=== PATIENT | female | born 1980 | race Caucasian/White ===

== ENCOUNTER 2016-11-18 09:53 | Emergency (ER) | payer OTHER ==
[~2016-11-18 09:53] MED LIST: ANCEF 1 GM/1 G/50 ML IV; COMPAZINE5 MG PO; DAKIN'S SOLUTI500 ML IR; LEVEMIR100 UNIT/1 SC; LISINOPRIL20 MG PO; MIRALAX17 GM PO; NORCO 7.5-3251 EACH PO; NOVOLOG100 UNIT/1 SC; PRAVASTATIN SOD20 MG PO; PROTONIX 40 MG40 M1 PO; TYLENOL 325MG325 MG PO
[2016-11-18 12:23] LABS: HEMOGLOBIN 14.9 gm/dl (12.3-15.3); RED BLOOD COUNT 4.89 M/UL (4.00-5.10); WHITE BLOOD COUNT 6.8 K/UL (4.5-11.0)
[2016-11-18 13:16] LABS: BUN/CREATININE RATIO 16 (0-10)
== END 2016-11-18 20:30 | disposition short-term general hospital (02) ==
LOC: ER1 09:53
PROVIDERS: Emergency Medicine
DX: S09.90XA Unspecified injury of head, initial encounter (principal); R20.2 Paresthesia of skin; R73.9 Hyperglycemia, unspecified; G40.909 Epilepsy, unspecified, not intractable, without status epilepticus; Z79.899 Other long term (current) drug therapy; W18.30XA Fall on same level, unspecified, initial encounter; Y92.009 Unspecified place in unspecified non-institutional (private) residence as the place of occurrence of the external cause
CPT/HCPCS: 36415; 70450; 71010; 72125; 80053; 82550; 82553; 83874; 84484; 85025; 96372; 99284; J1815

== ENCOUNTER 2016-11-26 18:45 | Emergency (ER) | payer OTHER ==
[2016-11-26 20:51] LABS: HEMOGLOBIN 13.9 gm/dl (12.3-15.3); RED BLOOD COUNT 4.58 M/UL (4.00-5.10); WHITE BLOOD COUNT 7.5 K/UL (4.5-11.0)
[2016-11-26 21:17] LABS: BUN/CREATININE RATIO 34 (0-10)
== END 2016-11-27 00:02 | disposition home or self-care (01) ==
LOC: ER1 18:45
PROVIDERS: Family Medicine
DX: E11.65 Type 2 diabetes mellitus with hyperglycemia (principal); I95.1 Orthostatic hypotension; R00.0 Tachycardia, unspecified; Z90.49 Acquired absence of other specified parts of digestive tract
CPT/HCPCS: 36415; 71010; 80053; 81001; 82009; 82550; 82553; 83605; 83690; 83874; 84484; 85025; 87077; 87086; 87186; 93005; 96360; 96361; 99284; G0480

== ENCOUNTER 2020-08-01 12:58 | Emergency (ER) | payer OTHER ==
[~2020-08-01 12:58] MED LIST changes: +ABILIFY10 MG PO; +ADMELOG100 UNIT/1 SQ; +ALPRAZOLAM0.5 MG PO; +ASPIR 8181 MG PO; +AUGMENTIN 875-1 EACH PO; +BACTRIM DS TAB1 EACH PO; +BACTROBAN OINT22 GM TOP; +BENTYL 20MG TAB20 MG PO; +CARAFATE1 GM PO; +CLINDAMYCIN HC300 MG PO; +CLONIDINE1 EAC1 TD; +CYANOCOBAL1000 MCG/1 INJ; +DAKIN S TOP; -DAKIN'S SOLUTI500 ML IR; +DECADRON6 MG PO; +ECOTRIN81 MG PO; +FLAGYL500 MG PO; +FLEXERIL 10 MG10 MG PO; +GABAPENTIN300 MG PO; +HYDROCODON-ACE1 EAC2 PO; +IBUPROFEN600 MG PO; +JARDIANCE25 MG PO; +KLONOPIN TAB 00.5 MG PO; +LANTUS100 UNIT/1 SC; +LANTUS100 UNIT/1 SQ; +LEVAQUIN500 MG PO; +LEVAQUIN750 MG PO; +LINZESS145 MCG PO; +LINZESS290 MCG PO; +LINZESS72 MCG PO; +LIPITOR40 MG PO; +MACROBID 100 M100 MG PO; +MULTI FOR HER1 EACH PO; +NOVOLOG FL100 UNIT/1 SQ; -NOVOLOG100 UNIT/1 SC; +PHENERGAN 12.12.5 M1 PO; +PHENERGAN 12.12.5 MG PR; +PHENERGAN 25 MG25 M1 PO; +PLAVIX75 MG PO; +PRAVACHOL20 MG PO; +PRINIVIL10 MG PO; +PROAMATINE 2.52.5 MG PO; +PROBIOTIC1 EACH PO; +PROTONIX40 MG PO; +REGLAN10 MG PO; +THERAGRAN M TAB1 EA PO; +TRAZODONE HCL100 MG PO; +TRILEPTAL600 MG PO; +VITAMIN C500 M1 PO; +VITAMIN D250000 UNIT PO; +ZOFRAN ODT 4 MG4 MG PO; +ZOFRAN4 MG PO; +ZYPREXA5 MG PO
[2020-08-01 15:51] LABS: HEMOGLOBIN 14.2 gm/dl (12.3-15.3); RED BLOOD COUNT 5.04 M/UL (4.00-5.10); WHITE BLOOD COUNT 8.2 K/UL (4.5-11.0)
[2020-08-01 16:23] LABS: BUN/CREATININE RATIO 19 (0-10)
[2020-08-01] MEDS ORDERED: NAPROSYN500 MG PO (18:04)
== END 2020-08-01 18:24 | disposition home or self-care (01) ==
LOC: ER1 12:58
PROVIDERS: Physician Assistant
DX: S06.9X9A Unspecified intracranial injury with loss of consciousness of unspecified duration, initial encounter (principal); S43.031A Inferior subluxation of right humerus, initial encounter; S16.1XXA Strain of muscle, fascia and tendon at neck level, initial encounter; M47.812 Spondylosis without myelopathy or radiculopathy, cervical region; I10 Essential (primary) hypertension; E11.43 Type 2 diabetes mellitus with diabetic autonomic (poly)neuropathy; K31.84 Gastroparesis; Z86.718 Personal history of other venous thrombosis and embolism; Z86.73 Personal history of transient ischemic attack (TIA), and cerebral infarction without residual deficits; Z88.7 Allergy status to serum and vaccine; Z79.899 Other long term (current) drug therapy; Z79.4 Long term (current) use of insulin; W19.XXXA Unspecified fall, initial encounter; Y92.009 Unspecified place in unspecified non-institutional (private) residence as the place of occurrence of the external cause
CPT/HCPCS: 29240; 70450; 72125; 73030; 80053; 81001; 82550; 82553; 83874; 84484; 84702; 85025; 85379; 93005; 99284

== ENCOUNTER 2020-10-08 23:46 | Emergency (ER) | payer OTHER ==
[~2020-10-08 23:46] MED LIST changes: +NAPROSYN500 MG PO
[2020-10-09] MEDS ORDERED: BACTRIM 400-801 EACH PO (00:38)
== END 2020-10-09 00:10 | disposition home or self-care (01) ==
LOC: ER1 23:46
DX: E11.621 Type 2 diabetes mellitus with foot ulcer (principal); L97.419 Non-pressure chronic ulcer of right heel and midfoot with unspecified severity
CPT/HCPCS: 73660; 87070; 87205; 99283

== ENCOUNTER → 2020-10-10 | Outpatient (CLI) | payer OTHER ==
[~2020-10-10] MED LIST changes: +ANTIVERT 12.512.5 MG PO; +BACTRIM 400-801 EACH PO
== END ==
LOC: CT 09:38
DX: K52.9 Noninfective gastroenteritis and colitis, unspecified (principal); K63.89 Other specified diseases of intestine
CPT/HCPCS: 36415; 82565; 84520; Q9967

== ENCOUNTER → 2020-10-23 | Outpatient (CLI) | payer OTHER | LOC: WCC 08:00 | PROC: 0KBV0ZZ Excision of Right Foot Muscle, Open Approach (ICD-10-PCS; principal; 2020-10-23) | DX: E11.621 Type 2 diabetes mellitus with foot ulcer (principal); L97.513 Non-pressure chronic ulcer of other part of right foot with necrosis of muscle; E11.52 Type 2 diabetes mellitus with diabetic peripheral angiopathy with gangrene; I96 Gangrene, not elsewhere classified; I10 Essential (primary) hypertension; B95.7 Other staphylococcus as the cause of diseases classified elsewhere; B95.2 Enterococcus as the cause of diseases classified elsewhere; E11.43 Type 2 diabetes mellitus with diabetic autonomic (poly)neuropathy; K31.84 Gastroparesis; G40.89 Other seizures; D64.9 Anemia, unspecified; M19.90 Unspecified osteoarthritis, unspecified site; E11.69 Type 2 diabetes mellitus with other specified complication; M86.8X9 Other osteomyelitis, unspecified sites; E11.40 Type 2 diabetes mellitus with diabetic neuropathy, unspecified; E46 Unspecified protein-calorie malnutrition; Z68.29 Body mass index [BMI] 29.0-29.9, adult; Z88.7 Allergy status to serum and vaccine; Z91.041 Radiographic dye allergy status; Z79.2 Long term (current) use of antibiotics; Z79.4 Long term (current) use of insulin ==

== ENCOUNTER → 2020-10-30 | Outpatient (CLI) | payer OTHER | LOC: WCC 13:00 | PROC: 0KBV0ZZ Excision of Right Foot Muscle, Open Approach (ICD-10-PCS; principal; 2020-10-30) | DX: E11.621 Type 2 diabetes mellitus with foot ulcer (principal); L97.513 Non-pressure chronic ulcer of other part of right foot with necrosis of muscle; E11.52 Type 2 diabetes mellitus with diabetic peripheral angiopathy with gangrene; I96 Gangrene, not elsewhere classified; E11.43 Type 2 diabetes mellitus with diabetic autonomic (poly)neuropathy; K31.84 Gastroparesis; E11.40 Type 2 diabetes mellitus with diabetic neuropathy, unspecified; E11.69 Type 2 diabetes mellitus with other specified complication; M86.8X9 Other osteomyelitis, unspecified sites; I10 Essential (primary) hypertension; B95.7 Other staphylococcus as the cause of diseases classified elsewhere; B95.2 Enterococcus as the cause of diseases classified elsewhere; G40.89 Other seizures; D64.9 Anemia, unspecified; M19.90 Unspecified osteoarthritis, unspecified site; E46 Unspecified protein-calorie malnutrition; Z68.29 Body mass index [BMI] 29.0-29.9, adult; Z79.4 Long term (current) use of insulin; Z88.7 Allergy status to serum and vaccine; Z91.041 Radiographic dye allergy status; Z79.2 Long term (current) use of antibiotics ==

== ENCOUNTER → 2020-10-30 | Outpatient (CLI) | payer OTHER | LOC: KOH-I 08:52 | DX: M51.27 Other intervertebral disc displacement, lumbosacral region (principal) | CPT/HCPCS: 72131 ==

== ENCOUNTER → 2020-11-06 | Outpatient (CLI) | payer OTHER | LOC: WCC 13:07 | DX: E11.621 Type 2 diabetes mellitus with foot ulcer (principal); L97.512 Non-pressure chronic ulcer of other part of right foot with fat layer exposed; E11.43 Type 2 diabetes mellitus with diabetic autonomic (poly)neuropathy; K31.84 Gastroparesis; I10 Essential (primary) hypertension; G40.89 Other seizures; E46 Unspecified protein-calorie malnutrition; B95.7 Other staphylococcus as the cause of diseases classified elsewhere; B95.2 Enterococcus as the cause of diseases classified elsewhere; Z91.041 Radiographic dye allergy status; Z88.7 Allergy status to serum and vaccine; Z79.4 Long term (current) use of insulin; Z79.2 Long term (current) use of antibiotics ==

== ENCOUNTER 2020-11-07 11:39 | Emergency (ER) | payer OTHER ==
[~2020-11-07 11:39] MED LIST changes: -ANTIVERT 12.512.5 MG PO
[2020-11-07 12:55] LABS: RED BLOOD COUNT 4.41 M/UL (4.00-5.10); WHITE BLOOD COUNT 7.5 K/UL (4.5-11.0)
[2020-11-07 13:21] LABS: BUN/CREATININE RATIO 19 (0-10)
[2020-11-07] MEDS ORDERED: ANTIVERT 12.512.5 MG PO (15:38)
== END 2020-11-07 15:55 | disposition home or self-care (01) ==
LOC: ER1 11:39
PROVIDERS: Family Medicine
DX: E10.65 Type 1 diabetes mellitus with hyperglycemia (principal); G43.909 Migraine, unspecified, not intractable, without status migrainosus; E10.40 Type 1 diabetes mellitus with diabetic neuropathy, unspecified; G40.909 Epilepsy, unspecified, not intractable, without status epilepticus; Z79.82 Long term (current) use of aspirin; Z86.73 Personal history of transient ischemic attack (TIA), and cerebral infarction without residual deficits; Z79.899 Other long term (current) drug therapy; Z88.7 Allergy status to serum and vaccine
CPT/HCPCS: 70450; 80053; 81001; 82550; 82553; 82962; 83874; 84439; 84443; 84484; 85025; 93005; 96374; 99284; J2550

== ENCOUNTER → 2020-11-13 | Outpatient (CLI) | payer OTHER ==
[~2020-11-13] MED LIST changes: +ANTIVERT 12.512.5 MG PO
== END ==
LOC: WCC 13:30
DX: E11.621 Type 2 diabetes mellitus with foot ulcer (principal); L97.512 Non-pressure chronic ulcer of other part of right foot with fat layer exposed; E11.43 Type 2 diabetes mellitus with diabetic autonomic (poly)neuropathy; K31.84 Gastroparesis; I10 Essential (primary) hypertension; G40.89 Other seizures; E46 Unspecified protein-calorie malnutrition; B95.7 Other staphylococcus as the cause of diseases classified elsewhere; B95.2 Enterococcus as the cause of diseases classified elsewhere; Z91.041 Radiographic dye allergy status; Z88.7 Allergy status to serum and vaccine; Z79.4 Long term (current) use of insulin; Z79.2 Long term (current) use of antibiotics

== ENCOUNTER → 2020-12-10 | Outpatient (CLI) | payer OTHER | LOC: WCC 09:30 | DX: E11.621 Type 2 diabetes mellitus with foot ulcer (principal); L97.512 Non-pressure chronic ulcer of other part of right foot with fat layer exposed; E11.43 Type 2 diabetes mellitus with diabetic autonomic (poly)neuropathy; K31.84 Gastroparesis; I10 Essential (primary) hypertension; G40.89 Other seizures; E46 Unspecified protein-calorie malnutrition; B95.7 Other staphylococcus as the cause of diseases classified elsewhere; B95.2 Enterococcus as the cause of diseases classified elsewhere; Z91.041 Radiographic dye allergy status; Z88.7 Allergy status to serum and vaccine; Z79.4 Long term (current) use of insulin; Z79.2 Long term (current) use of antibiotics | CPT/HCPCS: 87070; 87205 ==

== ENCOUNTER → 2021-01-07 | Outpatient (CLI) | payer OTHER | LOC: WCC 08:15 | DX: E11.621 Type 2 diabetes mellitus with foot ulcer (principal); L97.515 Non-pressure chronic ulcer of other part of right foot with muscle involvement without evidence of necrosis; E11.43 Type 2 diabetes mellitus with diabetic autonomic (poly)neuropathy; K31.84 Gastroparesis; I10 Essential (primary) hypertension; G40.89 Other seizures; E46 Unspecified protein-calorie malnutrition; B95.7 Other staphylococcus as the cause of diseases classified elsewhere; B95.2 Enterococcus as the cause of diseases classified elsewhere; Z91.041 Radiographic dye allergy status; Z79.4 Long term (current) use of insulin; Z79.891 Long term (current) use of opiate analgesic; Z79.899 Other long term (current) drug therapy ==

== ENCOUNTER → 2021-01-14 | Outpatient (CLI) | payer OTHER | LOC: WCC 08:00 | DX: E11.621 Type 2 diabetes mellitus with foot ulcer (principal); L97.515 Non-pressure chronic ulcer of other part of right foot with muscle involvement without evidence of necrosis; E11.43 Type 2 diabetes mellitus with diabetic autonomic (poly)neuropathy; K31.84 Gastroparesis; I10 Essential (primary) hypertension; G40.89 Other seizures; E46 Unspecified protein-calorie malnutrition; B95.7 Other staphylococcus as the cause of diseases classified elsewhere; B95.2 Enterococcus as the cause of diseases classified elsewhere; Z91.041 Radiographic dye allergy status; Z79.4 Long term (current) use of insulin; Z79.891 Long term (current) use of opiate analgesic; Z79.899 Other long term (current) drug therapy | CPT/HCPCS: 87070; 87077; 87186; 87205 ==

== ENCOUNTER → 2021-01-21 | Outpatient (CLI) | payer OTHER ==
[~2021-01-21] MED LIST changes: +CIPROFLOXACIN750 MG PO
== END ==
LOC: WCC 09:00
DX: E11.621 Type 2 diabetes mellitus with foot ulcer (principal); L97.512 Non-pressure chronic ulcer of other part of right foot with fat layer exposed; E11.43 Type 2 diabetes mellitus with diabetic autonomic (poly)neuropathy; K31.84 Gastroparesis; I10 Essential (primary) hypertension; E46 Unspecified protein-calorie malnutrition; G40.89 Other seizures; B95.7 Other staphylococcus as the cause of diseases classified elsewhere; B95.2 Enterococcus as the cause of diseases classified elsewhere; Z91.041 Radiographic dye allergy status; Z88.7 Allergy status to serum and vaccine; Z79.4 Long term (current) use of insulin; Z79.2 Long term (current) use of antibiotics; Z79.899 Other long term (current) drug therapy

== ENCOUNTER 2021-02-03 11:24 | Emergency (ER) | payer OTHER ==
[~2021-02-03 11:24] MED LIST changes: -CIPROFLOXACIN750 MG PO
[2021-02-03 14:03] LABS: HEMOGLOBIN 12.8 gm/dl (12.3-15.3); RED BLOOD COUNT 4.25 M/UL (4.00-5.10); WHITE BLOOD COUNT 7.3 K/UL (4.5-11.0)
[2021-02-03 14:29] LABS: BUN/CREATININE RATIO 12 (0-10)
== END 2021-02-03 17:33 | disposition home or self-care (01) ==
LOC: ER1 11:24
PROVIDERS: Physician Assistant Medical
DX: R10.31 Right lower quadrant pain (principal); R11.2 Nausea with vomiting, unspecified; R19.7 Diarrhea, unspecified; E11.9 Type 2 diabetes mellitus without complications; Z90.49 Acquired absence of other specified parts of digestive tract
CPT/HCPCS: 80053; 81001; 83690; 84703; 85025; 87077; 87086; 87186; 96374; 96375; 99284; J1885; J2405; Q9967

== ENCOUNTER 2021-02-08 15:15 | Emergency (ER) | payer OTHER ==
[2021-02-08 19:16] LABS: HEMOGLOBIN 13.3 gm/dl (12.3-15.3); RED BLOOD COUNT 4.44 M/UL (4.00-5.10); WHITE BLOOD COUNT 7.3 K/UL (4.5-11.0)
[2021-02-08 19:35] LABS: BUN/CREATININE RATIO 17 (0-10)
== END 2021-02-08 22:30 | disposition home or self-care (01) ==
LOC: ER1 15:15
PROVIDERS: Physician Assistant Medical
DX: E11.621 Type 2 diabetes mellitus with foot ulcer (principal); L97.519 Non-pressure chronic ulcer of other part of right foot with unspecified severity; Z79.4 Long term (current) use of insulin; Z90.49 Acquired absence of other specified parts of digestive tract
CPT/HCPCS: 73630; 80053; 81001; 85025; 85652; 86140; 99284; J0696

== ENCOUNTER 2021-02-19 22:57 | Emergency (ER) | payer OTHER ==
[2021-02-20 00:23] LABS: HEMOGLOBIN 13.6 gm/dl (12.3-15.3); RED BLOOD COUNT 4.52 M/UL (4.00-5.10); WHITE BLOOD COUNT 11.7 K/UL (4.5-11.0)
[2021-02-20] MEDS ORDERED: CIPROFLOXACIN750 MG PO (07:08)
[2021-02-20] MEDS ORDERED: AUGMENTIN 875-1 EACH PO (07:08)
== END 2021-02-20 08:19 | disposition home or self-care (01) ==
LOC: ER1 22:57
PROVIDERS: Physician Assistant
DX: S92.421A Displaced fracture of distal phalanx of right great toe, initial encounter for closed fracture (principal); L08.9 Local infection of the skin and subcutaneous tissue, unspecified; R10.9 Unspecified abdominal pain; E11.9 Type 2 diabetes mellitus without complications; G40.909 Epilepsy, unspecified, not intractable, without status epilepticus; W20.8XXA Other cause of strike by thrown, projected or falling object, initial encounter; Y92.009 Unspecified place in unspecified non-institutional (private) residence as the place of occurrence of the external cause
CPT/HCPCS: 73630; 73700; 80053; 81001; 83605; 83690; 84703; 85025; 96374; 96375; 96376; 99284; J3370; J7070; Q9967

== ENCOUNTER → 2021-02-20 | Outpatient (CLI) | payer OTHER ==
[~2021-02-20] MED LIST changes: +CIPROFLOXACIN750 MG PO
== END ==
LOC: WCC 07:57
PROC: 0KBV0ZZ Excision of Right Foot Muscle, Open Approach (ICD-10-PCS; principal; 2021-02-20)
DX: E11.621 Type 2 diabetes mellitus with foot ulcer (principal); K31.84 Gastroparesis; I10 Essential (primary) hypertension; Z79.4 Long term (current) use of insulin; G40.89 Other seizures; E11.43 Type 2 diabetes mellitus with diabetic autonomic (poly)neuropathy; E46 Unspecified protein-calorie malnutrition; F41.9 Anxiety disorder, unspecified
CPT/HCPCS: 87070; 87205

== ENCOUNTER 2021-02-21 19:34 | Emergency (ER) | payer OTHER ==
[2021-02-22] MEDS ORDERED: CIPROFLOXACIN750 MG PO (01:17)
[2021-02-22] MEDS ORDERED: AUGMENTIN 875-1 EACH PO (01:17)
== END 2021-02-22 01:53 | disposition home or self-care (01) ==
LOC: ER1 19:34
DX: E11.621 Type 2 diabetes mellitus with foot ulcer (principal); Z90.49 Acquired absence of other specified parts of digestive tract
CPT/HCPCS: 96365; 96366; 99283; J3370; J7070

== ENCOUNTER → 2021-03-18 | Outpatient (CLI) | payer OTHER | LOC: WCC 09:13 | DX: E11.621 Type 2 diabetes mellitus with foot ulcer (principal); L97.515 Non-pressure chronic ulcer of other part of right foot with muscle involvement without evidence of necrosis; E11.43 Type 2 diabetes mellitus with diabetic autonomic (poly)neuropathy; K31.84 Gastroparesis; I10 Essential (primary) hypertension; G40.89 Other seizures; E46 Unspecified protein-calorie malnutrition; Z91.041 Radiographic dye allergy status; Z88.7 Allergy status to serum and vaccine; Z79.4 Long term (current) use of insulin; Z79.899 Other long term (current) drug therapy ==

== ENCOUNTER → 2021-06-03 | Outpatient (CLI) | payer OTHER ==
[2021-06-03 17:32] LABS: HEMOGLOBIN 12.1 gm/dl (12.3-15.3); RED BLOOD COUNT 4.19 M/UL (4.00-5.10); WHITE BLOOD COUNT 8.1 K/UL (4.5-11.0)
[2021-06-03 17:50] LABS: BUN/CREATININE RATIO 18 (0-10)
== END ==
LOC: LAB 17:01
PROVIDERS: Surgery
DX: Z01.812 Encounter for preprocedural laboratory examination (principal); I73.9 Peripheral vascular disease, unspecified; E11.9 Type 2 diabetes mellitus without complications; I10 Essential (primary) hypertension; Z20.822 Contact with and (suspected) exposure to COVID-19
CPT/HCPCS: 36415; 80048; 85027; U0002

== ENCOUNTER 2021-08-05 04:28 | Emergency (ER) | payer OTHER ==
[2021-08-05 05:53] LABS: HEMOGLOBIN 11.5 gm/dl (12.3-15.3); RED BLOOD COUNT 4.41 M/UL (4.00-5.10); WHITE BLOOD COUNT 7.4 K/UL (4.5-11.0)
[2021-08-05 06:03] LABS: BUN/CREATININE RATIO 26 (0-10)
== END 2021-08-05 06:32 | disposition home or self-care (01) ==
LOC: ER1 04:28
PROVIDERS: Family Medicine
DX: G43.909 Migraine, unspecified, not intractable, without status migrainosus (principal); H57.12 Ocular pain, left eye; E11.9 Type 2 diabetes mellitus without complications
CPT/HCPCS: 80053; 85025; 85610; 85652; 96374; 96375; 99283; J0780; J1200; J2270; J7030

== ENCOUNTER → 2021-09-03 | Outpatient (CLI) | payer OTHER | LOC: EXRD 15:17 | DX: M25.572 Pain in left ankle and joints of left foot (principal) | CPT/HCPCS: 93971 ==

== ENCOUNTER 2021-09-28 16:22 | Emergency (ER) | payer OTHER ==
[2021-09-28 17:16] LABS: HEMOGLOBIN 9.7 gm/dl (12.3-15.3)
[2021-09-28 17:31] LABS: BUN/CREATININE RATIO 20 (0-10)
== END 2021-09-28 21:28 | disposition home or self-care (01) ==
LOC: ER1 16:22
PROVIDERS: Nurse Practitioner
DX: R07.89 Other chest pain (principal); R55 Syncope and collapse; R51.9 Headache, unspecified; I10 Essential (primary) hypertension; E11.9 Type 2 diabetes mellitus without complications; Z91.040 Latex allergy status; Z20.822 Contact with and (suspected) exposure to COVID-19
CPT/HCPCS: 0240U; 70450; 71045; 80053; 82550; 82553; 83605; 84484; 85025; 85379; 85610; 85652; 85730; 86140; 87040; 93005; 96374; 96375; 99285; J1885; J2270; J2405; Q9967

== ENCOUNTER 2021-12-12 23:30 | Emergency (ER) | payer OTHER ==
[2021-12-12 23:54] LABS: HEMOGLOBIN 10.3 gm/dl (12.3-15.3); RED BLOOD COUNT 4.39 M/UL (4.00-5.10); WHITE BLOOD COUNT 9.5 K/UL (4.5-11.0)
[2021-12-13 00:22] LABS: BUN/CREATININE RATIO 28 (0-10)
== END 2021-12-13 04:16 | disposition home or self-care (01) ==
LOC: ER1 23:30
PROVIDERS: Physician Assistant
DX: R25.2 Cramp and spasm (principal); I10 Essential (primary) hypertension; Z86.73 Personal history of transient ischemic attack (TIA), and cerebral infarction without residual deficits; E11.43 Type 2 diabetes mellitus with diabetic autonomic (poly)neuropathy; K31.84 Gastroparesis; Z79.4 Long term (current) use of insulin; Z90.49 Acquired absence of other specified parts of digestive tract; Z88.7 Allergy status to serum and vaccine
CPT/HCPCS: 80053; 81001; 82550; 82553; 83735; 83874; 84484; 84703; 85025; 85652; 86140; 87077; 87086; 87186; 99283

== ENCOUNTER 2022-03-29 08:54 | Emergency (ER) | payer OTHER ==
[2022-03-29] MEDS ORDERED: CYCLOBENZAPRINE10 MG PO (11:49)
== END 2022-03-29 12:05 | disposition home or self-care (01) ==
LOC: ER1 08:54
DX: S39.012A Strain of muscle, fascia and tendon of lower back, initial encounter (principal); M25.551 Pain in right hip; E11.9 Type 2 diabetes mellitus without complications; I10 Essential (primary) hypertension; Z88.7 Allergy status to serum and vaccine; Z91.040 Latex allergy status; X58.XXXA Exposure to other specified factors, initial encounter
CPT/HCPCS: 72131; 72192; 73502; 84703; 99284